=== PATIENT | male | born 1945 ===

== ENCOUNTER → 2022-10-04 | Outpatient (CLI) | payer MEDICARE ==
[~2022-10-04] MED LIST: OXYACE5T PO
[2022-10-04 14:38] LABS: BASOPHILS ABSOLUTE AUTO 0.13 K/mm3 (0.00-0.23); BASOPHILS PERCENT AUTO 2 % (0-2); EOSINOPHILS ABSOLUTE AUTO 0.61 K/mm3 (0.00-0.68); EOSINOPHILS PERCENT AUTO 7 % (0-6); Hematocrit 39.2 % (37.0-53.0); Hemoglobin 12.7 g/dL (13.5-17.5); IMMATURE GRAN ABSOLUTE AUTO 0.05 K/mm3 (0.00-0.10); IMMATURE GRAN PERCENT AUTO 1 % (0-1); LYMPHOCYTES ABSOLUTE AUTO 2.54 K/mm3 (0.84-5.20); LYMPHOCYTES PERCENT AUTO 29 % (21-46); MONOCYTES ABSOLUTE AUTO 0.81 K/mm3 (0.16-1.47); MONOCYTES PERCENT AUTO 9 % (4-13); Mean Corpuscular HGB Conc 32.4 g/dL (31.5-36.5); Mean Corpuscular Volume 102 fL (80-100); Mean Platelet Volume 10.4 fL (9.1-12.4); NEUTROPHILS ABSOLUTE AUTO 4.77 K/mm3 (1.96-9.15); NEUTROPHILS PERCENT AUTO 54 % (41-73); Platelet Count 333 K/mm3 (150-400); RDW Coefficient Variation 16.4 % (11.7-14.2); RDW Standard Deviation 62.1 fL (35.1-46.3); Red Blood Cell Count 3.85 M/mm3 (4.30-5.90); White Blood Cell Count 8.91 K/mm3 (4.00-11.30)
[2022-10-04 14:46] LABS: Very Low Density Lipoprot Chol 17 mg/dL (6-32)
[2022-10-04 15:10] LABS: Alanine Aminotransfer (ALT/SGP 35 U/L (12-78); Albumin, Blood 3.7 g/dL (3.4-5.0); Albumin/Globulin Ratio 0.9 (0.8-1.8); Alk Phos 148 U/L (50-136); Anion Gap 6 mmol/L (6-16); Aspartate Aminotrans (AST/SGOT 23 U/L (12-37); Bilirubin, Total 0.3 mg/dL (0.1-1.0); Blood Urea Nitrogen 27 mg/dL (8-24); CHOL/HDL RATIO 2.1; CO2, Blood 24 mmol/L (21-32); Calcium, Blood 9.5 mg/dL (8.5-10.1); Chloride, Blood 111 mmol/L (98-108); Cholesterol 145 mg/dL (50-200); Creatinine, Blood 1.23 mg/dL (0.60-1.20); Glomerular Filtration Rate 60 (60-); Glucose, Blood 89 mg/dL (70-99); HDL Cholesterol 69 mg/dL (>39); LDL/HDL RATIO 0.9; Low Density Lipoprotein Chol 59 mg/dL (0-110); Potassium, Blood 3.9 mmol/L (3.5-5.5); Sodium, Blood 141 mmol/L (136-145); Total Protein, Blood 7.7 g/dL (6.4-8.2); Triglycerides 85 mg/dL (30-160)
== END ==
LOC: LAB SHORT 11:57 → LAB 11:57
PROVIDERS: Physician Assistant
DX: Z11.59 Encounter for screening for other viral diseases (principal); E03.9 Hypothyroidism, unspecified; E55.9 Vitamin D deficiency, unspecified; I10 Essential (primary) hypertension; R41.3 Other amnesia
CPT/HCPCS: 80053; 80061; 82306; 82607; 82746; 84443; 85025; 85651; 86592; 86803

== ENCOUNTER 2024-02-11 18:30 | Inpatient (IN) | payer MEDICARE, OTHER ==
[~2024-02-11] VITALS: Ht 172.7 cm; Wt 56.7 kg
[2024-02-11 19:57] LABS: BASOPHILS ABSOLUTE AUTO 0.11 K/mm3 (0.00-0.23); BASOPHILS PERCENT AUTO 1 % (0-2); EOSINOPHILS ABSOLUTE AUTO 0.47 K/mm3 (0.00-0.68); EOSINOPHILS PERCENT AUTO 4 % (0-6); Hematocrit 37.1 % (37.0-53.0); Hemoglobin 12.1 g/dL (13.5-17.5); IMMATURE GRAN ABSOLUTE AUTO 0.05 K/mm3 (0.00-0.10); IMMATURE GRAN PERCENT AUTO 1 % (0-1); LYMPHOCYTES ABSOLUTE AUTO 2.44 K/mm3 (0.84-5.20); LYMPHOCYTES PERCENT AUTO 22 % (21-46); MONOCYTES ABSOLUTE AUTO 1.42 K/mm3 (0.16-1.47); MONOCYTES PERCENT AUTO 13 % (4-13); Mean Corpuscular HGB 33.3 pg (26.0-34.0); Mean Corpuscular HGB Conc 32.6 g/dL (31.5-36.5); Mean Corpuscular Volume 102 fL (80-100); Mean Platelet Volume 9.7 fL (9.1-12.4); NEUTROPHILS ABSOLUTE AUTO 6.47 K/mm3 (1.96-9.15); NEUTROPHILS PERCENT AUTO 59 % (41-73); Platelet Count 265 K/mm3 (150-400); RDW Coefficient Variation 16.2 % (11.7-14.2); RDW Standard Deviation 61.2 fL (35.1-46.3); Red Blood Cell Count 3.63 M/mm3 (4.30-5.90); White Blood Cell Count 10.96 K/mm3 (4.00-11.30)
[2024-02-11] MEDS ORDERED: MethylPREDNISolone Sod Succ 125 MG Vial IV ONE (20:00)
[2024-02-11] MEDS ORDERED: Ipratropium/Albuterol SulF 2.5-0.5MG/3 ML Amp INH ONE ×2 (20:00)
[2024-02-11 20:53] LABS: Albumin, Blood 3.4 g/dL (3.4-5.0); Albumin/Globulin Ratio 0.8 (0.8-1.8); Bilirubin, Total 0.4 mg/dL (0.1-1.0); Bun/Creatinine Ratio 23.3 (12.0-20.0); Calcium, Blood 9.7 mg/dL (8.5-10.1); Creatinine, Blood 1.2 mg/dL (0.60-1.20); Globulin, Blood 4.3 g/dL (2.2-4.0); Potassium, Blood 4.4 mmol/L (3.5-5.5); Total Protein, Blood 7.7 g/dL (6.4-8.2)
[2024-02-11 21:12] LABS: Influenza B, PCR NEGATIVE (NEGATIVE); Resp Syncytial Virus, PCR NEGATIVE (NEGATIVE); SARS-Cov-2 (COVID-19) PCR, MMC NEGATIVE (NEGATIVE)
[2024-02-11 22:14] LABS: Influenza A, PCR POSITIVE (NEGATIVE)
[2024-02-11] MEDS ORDERED: Acetaminophen 325 MG TABLET PO PRN (22:30)
[2024-02-11] MEDS ORDERED: Benzonatate 100 MG Cap PO PRN (22:30)
[2024-02-11] MEDS ORDERED: FLU VACC TS2024-25(6MOS UP)/PF 45 MCG/0.5 ML SYRINGE IM ONE (22:35)
[2024-02-11] MEDS ORDERED: Ipratropium/Albuterol SulF 2.5-0.5MG/3 ML Amp INH SCH (22:35)
[2024-02-11] MEDS ORDERED: Albuterol 2.5 MG/3 ML VIAL INH PRN (22:35)
[2024-02-11] MEDS ORDERED: Lactated Ringer's 1,000 ML IV SCH (23:00)
[2024-02-11] MEDS ORDERED: ALBU3IS INH (23:08)
[2024-02-11] MEDS ORDERED: METOPROLOL TART25 MG PO (23:08)
[2024-02-11] MEDS ORDERED: SYNTHROID88 MCG PO (23:09)
[2024-02-11] MEDS ORDERED: ALLOPURINOL100 M1 PO (23:09)
[2024-02-11] MEDS ORDERED: MIRTAZAPINE7.5 M1 PO (23:10)
[2024-02-11] MEDS ORDERED: AMLODIPINE BES2.5 MG PO (23:10)
[2024-02-11] MEDS ORDERED: ATOR40TA PO (23:10)
[2024-02-11] MEDS ORDERED: BRILINTA90 M7 PO (23:11)
--- NOTE | 2024-02-12 00:10 | NUR ---
PT ARRIVED FROM ER TO 324 VIA GURNEY. APPEARS TO BE ALERT AND ORIENTED. BROUGHT UP ON 6L VIA NC. PT TRANSFERRED TO BED VIA SLIDER SHEET. PT VERY VOCAL WITH TURNING AND WITH REMOVING EXCESS LINEN. STARTLES VERY EASILY. REASSURED PT THAT HE WOULD BE MORE COMFORTABLE ONCE WE GOT HIM SETTLED. PER ER NURSE, PT KEPT REMOVING HIS NC, REPLACED NC WITH OXIMASK ON 6L. PT SATS AT 93-94%. BOOSTED PT UP IN BED AND SUPPORTED HEAD WITH TWO PILLOWS WITH HOB ELEVATED. PT NODDED HEAD THAT HE WAS COMFORTABLE WHEN ASKED. HARD TO UNDERSTAND AT TIMES, PT MUMBLES. BED ALARM ON FOR PT SAFETY. CALL LT IN REACH. WILL CONTINUE TO PROVIDE CARE T/O SHIFT.
[2024-02-12 00:25] VITALS: BP 130/69
[2024-02-12] MEDS ORDERED: Oseltamivir Phosphate 75 MG Cap PO SCH (00:43)
--- NOTE | 2024-02-12 01:43 | NUR ---
PT HAS PULLED OXIMASK FROM OFF FACE AND DESATS TO 88-89%. REMINDED PT TO LEAVE MASK ON FACE. STILL ON 6L VIA OXIMASK, SATS 96%, HR 88. CONTINUES TO HAVE LABORED BREATHING AND USING ACCESSORY MUSCLES.
--- NOTE | 2024-02-12 02:44 | NUR ---
AFTER RECEIVING BREATHING TREATMENT PT SATS 98% ON 6L.
--- NOTE | 2024-02-12 04:00 | NUR ---
PT RESTING COMFORTABLY. O2 SATS 97% ON 6L VIA OXIMASK. CALL LT IN REACH.
--- NOTE | 2024-02-12 05:27 | NUR ---
SHIFT SUMMARY: ER ADMIT AT 0010. PT A/O X 4. DOES HAVE DIFFICULTY IN EXPRESSING HIS NEEDS, MUMBLES AND GRUNTS WHEN HE TALKS. HYPERSENSITIVE TO TOUCH AND SOUND, STARTLES EASILY. TITRATED O2 FROM 6L TO 4L AT END OF SHIFT,SATS 98% AT REST.HR IN 70'S. NPC. RESPONDING TO BREATHING TREATMENTS, OXYGEN SATS IMPROVING. FIRST DOSE OF TAMIFLU GIVEN THIS SHIFT. LR INFUSING AT 125 MLS/HR. WILL CONTINUE TO PROVIDE CARE UNTIL SHIFT REPORT TO ONCOMING NURSE.
[2024-02-12 05:52] LABS: BASOPHILS ABSOLUTE AUTO 0.06 K/mm3 (0.00-0.23); BASOPHILS PERCENT AUTO 1 % (0-2); EOSINOPHILS PERCENT AUTO 0 % (0-6); Hematocrit 31.1 % (37.0-53.0); Hemoglobin 10.2 g/dL (13.5-17.5); IMMATURE GRAN ABSOLUTE AUTO 0.06 K/mm3 (0.00-0.10); IMMATURE GRAN PERCENT AUTO 1 % (0-1); LYMPHOCYTES ABSOLUTE AUTO 0.74 K/mm3 (0.84-5.20); LYMPHOCYTES PERCENT AUTO 6 % (21-46); MONOCYTES ABSOLUTE AUTO 0.39 K/mm3 (0.16-1.47); MONOCYTES PERCENT AUTO 3 % (4-13); Mean Corpuscular HGB 33.6 pg (26.0-34.0); Mean Corpuscular HGB Conc 32.8 g/dL (31.5-36.5); Mean Corpuscular Volume 102 fL (80-100); Mean Platelet Volume 10.1 fL (9.1-12.4); NEUTROPHILS ABSOLUTE AUTO 10.24 K/mm3 (1.96-9.15); NEUTROPHILS PERCENT AUTO 89 % (41-73); Platelet Count 261 K/mm3 (150-400); RDW Coefficient Variation 16.2 % (11.7-14.2); Red Blood Cell Count 3.04 M/mm3 (4.30-5.90); White Blood Cell Count 11.49 K/mm3 (4.00-11.30)
--- NOTE | 2024-02-12 05:53 | NUR ---
TITRATED O2 DOWN FROM 4L TO 3L, SATS AT 96%.
[2024-02-12 06:08] LABS: Albumin, Blood 2.8 g/dL (3.4-5.0); Albumin/Globulin Ratio 0.8 (0.8-1.8); Bilirubin, Total 0.3 mg/dL (0.1-1.0); Bun/Creatinine Ratio 23.8 (12.0-20.0); Creatinine, Blood 1.22 mg/dL (0.60-1.20); Globulin, Blood 3.6 g/dL (2.2-4.0); Potassium, Blood 3.6 mmol/L (3.5-5.5); Total Protein, Blood 6.4 g/dL (6.4-8.2)
[2024-02-12 08:11] VITALS: BP 133/75
[2024-02-12] MEDS ORDERED: MethylPREDNISolone Sod Succ 125 MG Vial IV SCH (09:00)
[2024-02-12] MEDS ORDERED: Enoxaparin 40 MG/0.4 ML SYR SC SCH (09:00)
[2024-02-12] MEDS ORDERED: GuaiFENesin 600 MG TabCR PO SCH (09:00)
[2024-02-12 14:58] VITALS: BP 113/58
[2024-02-12] MEDS ORDERED: Metoprolol Tartrate 25 MG Tab PO SCH (16:00)
--- NOTE | 2024-02-12 18:10 | NUR ---
PT AOX3 WITH SOME CONFUSION. PT HAS BEEN VERY TIRED AND RESTING NEEDS REPOSTIONED Q2 HRS. PT IS COOPERATIVE OF CARE ON 5L NC CURRENTLY. CALL LIGHT WITHIN REACH WILL CONTINUE TO MONITOR.
[2024-02-12] MEDS ORDERED: Oseltamvir Phosphate 30 MG Cap PO SCH (21:00)
[2024-02-12] MEDS ORDERED: Ticagrelor 90 MG TABLET PO SCH (21:00)
[2024-02-12] MEDS ORDERED: Mirtazapine 15 MG Tab PO SCH (21:00)
[2024-02-12 21:16] VITALS: BP 122/67
[2024-02-13 04:43] VITALS: BP 120/52
--- NOTE | 2024-02-13 05:12 | NUR ---
A&OX2-3, W/NOTABLE CONFUSION WHEN WAKING HIM, VSS, TELE NS 80'S, NIGHT O2 RANGING FROM 5-7L VIA MASK, DENIED PAIN, APPEARS TO BE SLEEPING AT THIS TIME, CALL LIGHT IN REACH, BED ALARM ACTIVE, WILL CONT TO MONITOR UNTIL REPORT GIVEN TO ONCOMING NURSE.
[2024-02-13 05:50] LABS: BASOPHILS ABSOLUTE AUTO 0.02 K/mm3 (0.00-0.23); BASOPHILS PERCENT AUTO 0 % (0-2); EOSINOPHILS PERCENT AUTO 0 % (0-6); Hematocrit 30.5 % (37.0-53.0); IMMATURE GRAN ABSOLUTE AUTO 0.14 K/mm3 (0.00-0.10); IMMATURE GRAN PERCENT AUTO 1 % (0-1); LYMPHOCYTES ABSOLUTE AUTO 1.35 K/mm3 (0.84-5.20); LYMPHOCYTES PERCENT AUTO 7 % (21-46); MONOCYTES ABSOLUTE AUTO 1.47 K/mm3 (0.16-1.47); MONOCYTES PERCENT AUTO 8 % (4-13); Mean Corpuscular HGB 33.2 pg (26.0-34.0); Mean Corpuscular HGB Conc 32.8 g/dL (31.5-36.5); Mean Corpuscular Volume 101 fL (80-100); NEUTROPHILS PERCENT AUTO 85 % (41-73); Platelet Count 258 K/mm3 (150-400); RDW Coefficient Variation 16.3 % (11.7-14.2); RDW Standard Deviation 60.9 fL (35.1-46.3); Red Blood Cell Count 3.01 M/mm3 (4.30-5.90); White Blood Cell Count 19.28 K/mm3 (4.00-11.30)
[2024-02-13] MEDS ORDERED: Levothyroxine Sodium 0.088 MG Tab PO SCH (06:00)
[2024-02-13 06:24] LABS: Bun/Creatinine Ratio 30.1 (12.0-20.0); Calcium, Blood 9.5 mg/dL (8.5-10.1); Creatinine, Blood 1.23 mg/dL (0.60-1.20); Potassium, Blood 3.9 mmol/L (3.5-5.5)
--- NOTE | 2024-02-13 06:47 | NUR ---
CALL DR TOVAR- PT HAD 2.08SEC PAUSE ON TELE THEN 3 BEATS NETTA IN 40S BEFORE RETURNING TO NS 70S, THEN IMMED HAD A 4 BEAT NETTA DOWN TO 34. NO NEW ORDERS, CONTINUE TO MONITOR.
[2024-02-13 07:52] VITALS: BP 103/57
[2024-02-13] MEDS ORDERED: Allopurinol 100 MG Tab PO SCH (09:00)
[2024-02-13] MEDS ORDERED: Atorvastatin 40 MG Tab PO SCH (09:00)
[2024-02-13] MEDS ORDERED: AmLODIPine Besylate 5 MG Tab PO SCH (09:00)
--- NOTE | 2024-02-13 14:52 | NUR ---
EARLY THIS MORNING PATIENT WAS BRADYING DOWN TO 40'S. AND OCCASIONALLY TOUCHING 38-39 DR. NOYOLA WAS NOTIFIED AND ORDERED PRN EKG WHEN NETTA. PATIENT HAS BEEN ON CONT PULSE OX AND HAS NOT BEEN NETTA SINCE. CONCRETE BLOCK MOLDER HAS ALSO NOT CALLED ME BACK TO REPORT NETTA EPISODES.
--- NOTE | 2024-02-13 15:35 | NUR ---
EKG COMPLETED, PLACED ON PAPER CHART
--- NOTE | 2024-02-13 15:58 | NUR ---
SHIFT SUMMARY PATIENT ROOM AIR AT BASELINE. CAME ON TO SHIFT AND PATIENT WAS ON 7L OXIMASK, HAVE WEANED PATIENT DOWN TO 4L OXIMASK AND SWITCH OVER TO NASAL CANNULA WITH MEALS. PATIENT PRIMARILY BREATHING THROUGH MOUTH, WILL OCCASIONALLY REMOVE MASK AND NEED REMINDING TO KEEP ON. PRODUCT MARKETER CALLED IN THE MORNING WITH REPORTS OF PATIENT BEING NETTA IN THE 40'S FREQUENTLY, AND OCCASIONALLY TOUGHING 38/39. DR. NOYOLA NOTIFIED AND ORDERED PRN EKG WHEN NETTA. EKG COMPLETED. DR. NOYOLA ALSO ORDERED CARDIOLOGY CONSULT, CONSULT CALLED IN TO DR. JACKSON. PATIENT USING URINAL IN BED, WILL NEED HELD OCCASIONALLY, FINE MOTOR SKILLS OF HANDS ARE LIMITED. THICK SILVERWARE HANDLES AT BEDSIDE. DOES NOT CALL APPROPRIATELY. JUST YELLS OUT. BED ALARM ON. PATIENT RECEIVING NEB TREATMENTS BY RT.
[2024-02-13 16:10] VITALS: BP 124/65
[2024-02-13 20:20] VITALS: BP 125/73
[2024-02-13] MEDS ORDERED: GuaiFENesin 600 MG TabCR PO SCH (21:00)
[2024-02-14 02:48] VITALS: BP 130/67
--- NOTE | 2024-02-14 02:56 | NUR ---
RAMP FLIGHT ATTENDANT NOTIFIED THIS RN OF ALERT TO ST ELEVATION AND DEPRESSION; TECH ADVISED PT HAD PREVIOUS SIMILAR ALERTS. ASSESSED PT; NO C/O OF CHEST PAIN OR CHANGE IN CONDITION. SUBSEQUENT CALL FROM TELE 15 MINUTES LATER TO ADVISE OF 2.09 SECOND PAUSE. CALL TO ON HOSPITALIST; NEW ORDER FOR EKG AND RECHECK VITALS. HR 85, AND BP 130/67. EKG COMPLETE. SINUS ARRHYTHMIA, R BBB. CANNOT RULE OUT INFFERIOR INFARCT, AGE UNDETERMINED. PT REMAINS ASYMPTOMATIC. HOPITALIST TO REVIEW EKG AND NOTIFY OF NEW ORDERS. CALL FROM [employer] AT [phone]; REPORTING ST ELEVATION HAS RESOLVED.
[2024-02-14 05:10] LABS: BASOPHILS ABSOLUTE AUTO 0.02 K/mm3 (0.00-0.23); BASOPHILS PERCENT AUTO 0 % (0-2); EOSINOPHILS PERCENT AUTO 0 % (0-6); Hematocrit 30.3 % (37.0-53.0); IMMATURE GRAN ABSOLUTE AUTO 0.11 K/mm3 (0.00-0.10); IMMATURE GRAN PERCENT AUTO 1 % (0-1); LYMPHOCYTES ABSOLUTE AUTO 1.34 K/mm3 (0.84-5.20); LYMPHOCYTES PERCENT AUTO 8 % (21-46); MONOCYTES ABSOLUTE AUTO 1.61 K/mm3 (0.16-1.47); MONOCYTES PERCENT AUTO 9 % (4-13); Mean Corpuscular HGB 33.4 pg (26.0-34.0); Mean Corpuscular Volume 101 fL (80-100); Mean Platelet Volume 9.6 fL (9.1-12.4); NEUTROPHILS ABSOLUTE AUTO 14.09 K/mm3 (1.96-9.15); NEUTROPHILS PERCENT AUTO 82 % (41-73); NRBC ABSOLUTE 0.04 K/mm3 (0.00-0.02); NRBC Auto 0.2 /100 WBC (0.0-0.2); Platelet Count 250 K/mm3 (150-400); RDW Coefficient Variation 16.5 % (11.7-14.2); RDW Standard Deviation 61.6 fL (35.1-46.3); Red Blood Cell Count 2.99 M/mm3 (4.30-5.90); White Blood Cell Count 17.17 K/mm3 (4.00-11.30)
--- NOTE | 2024-02-14 05:45 | NUR ---
AT 0415--FLOTATION TANK OPERATOR NOTIFIED THIS RN PT HAD 2.38 SECOND PAUSE. ASSESSED PT; ASYMTPOMATIC. WCTM.
--- NOTE | 2024-02-14 05:47 | NUR ---
THIS RN RESPONDED TO PT ROOM AT APROX 0530--PT WAS SCREAMING OBSCENITIES; "YOU SON OF A BITCH, GOD DAMN IT, GET THE FUCK OUT OF HERE" PT REPEATING SAME PHRASES OVER AND OVER. FOUND PT TO BE SITTING UP IN BED. OXYGEN MASK WAS OFF AND PT WAS TACHYPNEIC BUT OXYGEN SAT WAS 92%. WHEN I APPROACHED THE PT'S BEDSIDE HE CONTINUED SCREAMING. WHEN ATTEMPTING TO ADDRESS THE PT HE SAID "NOT YOU, HER" AND POINTED AT THE WINDOW. THE PT SAID HE WAS REFERING TO HIS MOTHER WHO HE COULD SEE ACCROSS THE ROOM. THE PT WAS HAVING AUDIO AND VISUAL HALLUCINATIONS. AT THAT TIME DINKEY BRAKEMAN CALLED TO REPORT HR WAS UP IN DANTE 150'S. STAYED WITH PT TO CALM. ASSISTED TO PLACE MASK BACK ON FACE AND RETURN PT TO COMFORTABLE POSITION. ASSURED PT OF HIS SAFETY AND INSTRUCTED ON TAKING DEEP BREATHS THROUGH NOSE. ASSISED WITH BATHROOM NEEDS. PT HR HAS RETURNED TO 90'S AND HE WAS CALM. PT REMAINS ON CONT PULSE OX. WCTM.
[2024-02-14 05:57] LABS: Bun/Creatinine Ratio 33.9 (12.0-20.0); Calcium, Blood 9.7 mg/dL (8.5-10.1); Creatinine, Blood 1.15 mg/dL (0.60-1.20); Potassium, Blood 3.9 mmol/L (3.5-5.5)
[2024-02-14 07:57] VITALS: BP 158/73
[2024-02-14] MEDS ORDERED: PredniSONE 20 MG Tab PO SCH (09:00)
--- NOTE | 2024-02-14 09:47 | NUR ---
MD NOTIFIED OF HEART RATE IN 30s THIS AM. TELEMETRY CALLED TO NOTIFY OF BRADYCARDIA. MD STATED OKAY TO ADMINISTER SCHEDULED AMLODIPINE. WILL CONTINUE TO MONITOR.
--- NOTE | 2024-02-14 13:53 | NUR ---
NOTIFIED OF HEART RATE IN 140s SUSTAINED FOR 8 MINUTES PER TEST KITCHEN HOME ECONOMIST. VITAL SIGNS OBTAINED, HEART RATE RETURNED TO 50s. PATIENT ASYMPTOMATIC. WILL CONTINUE TO MONITOR.
[2024-02-14 13:55] VITALS: BP 122/58
[2024-02-14 15:51] VITALS: BP 143/54
--- NOTE | 2024-02-14 18:49 | NUR ---
SHIFT SUMMARY PATIENT A/OX SELF. CALLS APPROPRIATELY. PATIENT INTERMITTENTLY IRRITABLE AND FAMILY REPORTS HE IS "JUMPY" AND TO VERBALIZE PRESENCE PRIOR TO ENTERING ROOM. PATIENT WEANED OFF OF SUPPLEMENTAL OXYGEN TODAY, TOLERATING WELL. CONTINUOUS PULSE OX IN PLACE SPO2 REMAINS ABOVE 88% ON ROOM AIR. TELEMETRY IN PLACE, PATIENT BRADYCARDIC IN 30s THIS AM AND THIS AFTERNOON TACHYCARDIC IN 140s, MD AWARE. PATIENT REMAINS ASYMPTOMATIC. REPEATS CHEST X RAY OBTAINED THIS AFTERNOON, REMIANS NEGATIVE. PATIENT CONTINUES WITH PRODUCTIVE COUGH. NO OTHER CONCERNS AT THIS TIME.
[2024-02-14 19:53] VITALS: BP 139/75
--- NOTE | 2024-02-15 02:10 | NUR ---
PER TELEMETRY PT WITH ST IN THE 130'S FOLLOWED SHORTLY AFTER WITH A 2 SECOND PAUSE. PT ASYMPTOMATIC. DR. TOVAR NOTIFIED. NO NEW ORDERS AT THIS TIME.
[2024-02-15 02:18] VITALS: BP 170/88
--- NOTE | 2024-02-15 04:08 | NUR ---
DR. TOVAR NOTIFIED OF ADDITIONAL SINUS TACH EPISODES IN 130-140'S, SLOW BEATS IN THE 30'S, AND 2.16 SECOND PAUSE. PT ASYMPTOMATIC. NO NEW ORDERS.
--- NOTE | 2024-02-15 05:43 | NUR ---
SHIFT SUMMARY PT CONTINUES TO HAVE FLUCTUATING HEART RATE. PER TELEMETRY, HEART RATE UP TO 130-140'S, HEART RATE DOWN TO THE 30-40'S, AND PAUSES OF APPROX 2 SECONDS. PLANNER/SCHEDULER MD CALLED X2 ABOUT HEART RATE ISSUES- NO NEW ORDERS. PT MAINTAINED O2 SATS >90% ON RA UNTIL 0200 WHEN SATS DROPPED TO 86-88%, FROM THEN 2L OXY MASK IN PLACE WITH SAT >90%. PT ORIENTED X4 WITH SOME FORGETFULNESS AND CONFUSION. PT SLEPT LONG INTERVALS THROUGH THE NIGHT. BED IN LOWEST POSITION, CALL LIGHT WITHIN REACH, SIDE RAILS UP X2.
[2024-02-15] MEDS ORDERED: Omeprazole 20 MG CapCR PO SCH (06:00)
[2024-02-15 06:30] LABS: BASOPHILS ABSOLUTE AUTO 0.02 K/mm3 (0.00-0.23); BASOPHILS PERCENT AUTO 0 % (0-2); EOSINOPHILS PERCENT AUTO 0 % (0-6); Hemoglobin 10.9 g/dL (13.5-17.5); IMMATURE GRAN ABSOLUTE AUTO 0.12 K/mm3 (0.00-0.10); IMMATURE GRAN PERCENT AUTO 1 % (0-1); LYMPHOCYTES ABSOLUTE AUTO 2.09 K/mm3 (0.84-5.20); LYMPHOCYTES PERCENT AUTO 16 % (21-46); MONOCYTES ABSOLUTE AUTO 1.59 K/mm3 (0.16-1.47); MONOCYTES PERCENT AUTO 13 % (4-13); Mean Corpuscular HGB 33.4 pg (26.0-34.0); Mean Corpuscular Volume 101 fL (80-100); Mean Platelet Volume 9.9 fL (9.1-12.4); NEUTROPHILS ABSOLUTE AUTO 8.91 K/mm3 (1.96-9.15); NEUTROPHILS PERCENT AUTO 70 % (41-73); NRBC ABSOLUTE 0.02 K/mm3 (0.00-0.02); NRBC Auto 0.2 /100 WBC (0.0-0.2); Platelet Count 281 K/mm3 (150-400); RDW Coefficient Variation 16.1 % (11.7-14.2); RDW Standard Deviation 60.6 fL (35.1-46.3); Red Blood Cell Count 3.26 M/mm3 (4.30-5.90); White Blood Cell Count 12.73 K/mm3 (4.00-11.30)
[2024-02-15 06:36] LABS: Bun/Creatinine Ratio 33.8 (12.0-20.0); Calcium, Blood 10.1 mg/dL (8.5-10.1); Creatinine, Blood 0.98 mg/dL (0.60-1.20); Potassium, Blood 3.9 mmol/L (3.5-5.5)
[2024-02-15 07:36] VITALS: BP 171/79
[2024-02-15] MEDS ORDERED: Aspirin 81 MG Chew PO SCH (09:00)
[2024-02-15 14:49] VITALS: BP 134/75
--- NOTE | 2024-02-15 17:34 | NUR ---
SHIFT SUMMARY: PATIENT A/O TO SELF, PLACED AND FAMILY AT BEDSIDE, CONFUSED AT TIMES, BUT EASILY REDIRECTABLE. PATIENT DENIES CP/PRESSURE, SOB, N/V AND DIZZINESS. PATIENT ON TELE, HAD EPISODE OF BEING TACHY HR IN THE LOW 120-140'S BUT DID NOT SUSTAINED AND BACK TO HIGH 40'S-90'S RANGE. AT AROUND 1400 PATIENT HR STAYED IN THE HIGH 40'S TO HIGH 50'S RANGE, BRADYCARDIA. PATIENT SLEPT MAJORITY OF THIS SHIFT. PATIENT ON 2L O2 VIA NC, SATTING 91-94%, LUNGS COARSE AND WHEEZY T/O TO AUSCULTATION. PATIENT IS EXTREMELY WEAK, PT/OT ORDERED. PATIENT HAS GOOD APPETITE, CONT/INCONT OF BLADDER, ATTENDS PLACED AND USES URINAL c CLIENT SERVICE ADMINISTRATOR. PATIENT HAD BEDBATH AND LINEN CHANGED TODAY. PATIENT RECEIVED SCHEDULED MEDS PER EMAR. VITAL SIGNS REVIEWED. BED ALARM ON FOR SAFETY. CALL LT IN REACH.
[2024-02-15 20:13] VITALS: BP 150/69
[2024-02-15] MEDS ORDERED: AmLODIPine Besylate 5 MG Tab PO SCH (21:00)
[2024-02-16 02:42] VITALS: BP 154/83
--- NOTE | 2024-02-16 05:03 | NUR ---
SHIFT SUMMARY PT SLEPT LONG INTERVALS THROUGH THE NIGHT. 2L NC MAINTAINED- CONTINUOUS PULSE OX WITH O2 SATS > 90%. PT CONTINOUS TO HAVE NON PRODUCTIVE COUGH AND SOB WITH ACTIVITY. TELE MONITOR CALLED X2 FOR SINUS TACH/ SVT. PT DID NOT HAVE ANY EPISODES OF SLOW BEATS OR PAUSES. HEART RATE SB40'S- SR90S. PT ORIENTED, BUT HAS PERIODS OF CONFUSION. BED ALARM ON, BED IN LOWEST POSITION, SIDE RAILS UP X3, CALL LIGHT WITHIN REACH.
[2024-02-16 05:14] LABS: BASOPHILS ABSOLUTE AUTO 0.02 K/mm3 (0.00-0.23); BASOPHILS PERCENT AUTO 0 % (0-2); EOSINOPHILS PERCENT AUTO 0 % (0-6); Hematocrit 32.7 % (37.0-53.0); Hemoglobin 10.8 g/dL (13.5-17.5); IMMATURE GRAN ABSOLUTE AUTO 0.06 K/mm3 (0.00-0.10); IMMATURE GRAN PERCENT AUTO 1 % (0-1); LYMPHOCYTES ABSOLUTE AUTO 2.26 K/mm3 (0.84-5.20); LYMPHOCYTES PERCENT AUTO 21 % (21-46); MONOCYTES ABSOLUTE AUTO 1.45 K/mm3 (0.16-1.47); MONOCYTES PERCENT AUTO 13 % (4-13); Mean Corpuscular HGB 32.9 pg (26.0-34.0); Mean Corpuscular Volume 100 fL (80-100); Mean Platelet Volume 9.9 fL (9.1-12.4); NEUTROPHILS ABSOLUTE AUTO 7.03 K/mm3 (1.96-9.15); NEUTROPHILS PERCENT AUTO 65 % (41-73); Platelet Count 286 K/mm3 (150-400); RDW Standard Deviation 58.7 fL (35.1-46.3); Red Blood Cell Count 3.28 M/mm3 (4.30-5.90); White Blood Cell Count 10.82 K/mm3 (4.00-11.30)
[2024-02-16 05:36] LABS: Bun/Creatinine Ratio 36.8 (12.0-20.0); Calcium, Blood 10.3 mg/dL (8.5-10.1); Creatinine, Blood 0.98 mg/dL (0.60-1.20)
[2024-02-16 08:11] VITALS: BP 145/71
[2024-02-16] MEDS ORDERED: NS 1,000 ML IV SCH (10:00)
[2024-02-16 14:54] VITALS: BP 138/68
--- NOTE | 2024-02-16 18:12 | NUR ---
PT AOX3 WITH CONFUSION. PT WILL CALL OUT AT TIMES,BUT CAN MAKE NEEDS KNOWN. PT WORKED WITH PT AND WAS GOTTEN UP IN CHAIR. WHEN UP IN CHAIR HR INCREASED TO 150s PT SAT UP FOR A BIT HR WOULD NOT GO DOWN AND PT WAS PUT BACK TO BED. HR WENT DOWN IMMEDIATELY. DR KU WAS NOTFIED AND FLUIDS WERE ORDERED. PT RESTING IN BED THE REST OF THE DAY. CALL LIGHT LAKHWINDER KATZ WILL CONTINUE TO MONITOR.
[2024-02-16 20:02] VITALS: BP 139/96
[2024-02-17 02:22] VITALS: BP 146/70
--- NOTE | 2024-02-17 04:32 | NUR ---
PARASITOLOGIST SUMMARY: PT A&O X3 WITH INTERMITTENT CONFUSION. PT SLEPT LONG INTERVALS THROUGH NIGHT. 2L NC MAINTAINED- CONTINUOUS PULS OX WITH O2 SATS > 90%. PT CONTINOUS TO HAVE NON PRODUCTIVE COUGH. HEART RATE SB40'S. PT NOTED TO HAVE INTERMITTENT AGITATION T/O SHIFT, TOILETING NEEDS MET AND FOOD OFFERED WITH GOOD EFFECT. DEIES PAIN, NO S/SX OF PAIN. BED ALARM ON, BED IN LOWEST POSITION.
[2024-02-17 08:01] VITALS: BP 157/88
[2024-02-17 09:06] VITALS: BP 162/83
[2024-02-17 09:09] VITALS: BP 134/86
[2024-02-17 15:32] VITALS: BP 137/77
--- NOTE | 2024-02-17 17:06 | NUR ---
SHIFT SUMMARY PT CONT LEVEL OF CARE. PT NOTED TO BE A&OX4 AND ASSIST X1. PT HAS BEEN ENCOURAGED TO GET UP WITH MEALS AND AMBULATE AROUND ROOM PER PHYSICIAN. PT IS STILL REQUIRING 2L/NC. PT NOTED TO BE SINUS NETTA WHILE RESTING AND SINUS RYTHM WHILE AWAKE THIS SHIFT. ORTHOSTATIC VS TAKEN THIS SHIFT WHICH NOTED ORTHOSTATIC HYPOTENTION. PHYSICAN MADE AWARE WITH NO NEW ORDERS AT THIS TIME. THERAPY NOTED TO WORK WITH PT FOR A SHORT TIME THIS SHIFT. POSSIBLE DC TOMORROW.
[2024-02-17 19:23] VITALS: BP 133/65
[2024-02-18 03:40] VITALS: BP 159/72
--- NOTE | 2024-02-18 04:20 | NUR ---
SHIFT SUMMARY PATIENT HAD NO ACUTE CHANGES. AXOX 3-4 WITH CONFUSION AT TIMES. ONE ASSIST W/FWW TO BSC. USES URINAL AT BEDSIDE. UP IN CHAIR AT START OF SHIFT. IRRITABLE AT TIMES. PIV INTACT. TELE MONITOR NSR 87. ON 2L O2 NC AND 3L BASELINE. CALL LIGHT IN REACH. BED IN LOWEST POSITION. WILL CONTINUE TO MONITOR UNTIL DAY SHIFT NURSE ASSUMES CARE.
[2024-02-18 05:20] LABS: BASOPHILS ABSOLUTE AUTO 0.02 K/mm3 (0.00-0.23); BASOPHILS PERCENT AUTO 0 % (0-2); EOSINOPHILS PERCENT AUTO 0 % (0-6); Hematocrit 32.7 % (37.0-53.0); Hemoglobin 10.9 g/dL (13.5-17.5); IMMATURE GRAN ABSOLUTE AUTO 0.16 K/mm3 (0.00-0.10); IMMATURE GRAN PERCENT AUTO 1 % (0-1); LYMPHOCYTES ABSOLUTE AUTO 2.52 K/mm3 (0.84-5.20); LYMPHOCYTES PERCENT AUTO 19 % (21-46); MONOCYTES PERCENT AUTO 10 % (4-13); Mean Corpuscular HGB 33.4 pg (26.0-34.0); Mean Corpuscular HGB Conc 33.3 g/dL (31.5-36.5); Mean Corpuscular Volume 100 fL (80-100); Mean Platelet Volume 10.4 fL (9.1-12.4); NEUTROPHILS ABSOLUTE AUTO 9.31 K/mm3 (1.96-9.15); NEUTROPHILS PERCENT AUTO 70 % (41-73); NRBC ABSOLUTE 0.02 K/mm3 (0.00-0.02); NRBC Auto 0.2 /100 WBC (0.0-0.2); Platelet Count 330 K/mm3 (150-400); RDW Coefficient Variation 15.8 % (11.7-14.2); RDW Standard Deviation 58.8 fL (35.1-46.3); Red Blood Cell Count 3.26 M/mm3 (4.30-5.90); White Blood Cell Count 13.31 K/mm3 (4.00-11.30)
[2024-02-18 05:37] LABS: Bun/Creatinine Ratio 31.4 (12.0-20.0); Calcium, Blood 9.8 mg/dL (8.5-10.1); Creatinine, Blood 0.95 mg/dL (0.60-1.20)
[2024-02-18 08:05] VITALS: BP 151/74
[2024-02-18] MEDS ORDERED: ASPI81CH PO (15:00)
[2024-02-18] MEDS ORDERED: Tessalon200 MG PO (15:01)
[2024-02-18] MEDS ORDERED: GUAI600T33 PO (15:02)
[2024-02-18] MEDS ORDERED: OMEP20ER PO (15:02)
[2024-02-18] MEDS ORDERED: PRED20 PO (15:03)
[2024-02-18] MEDS ORDERED: AMLO5 PO (15:04)
--- NOTE | 2024-02-18 15:33 | NUR ---
DISCHARGE SUMMARY DISCHARGE PACKET WENT OVER WITH PATIENT AND FAMILY, WENT OVER NEW PRESCRIPTIONS. EDUCATED PATIENT THAT [facility] IS CLOSED TODAY, PATIENT STILL PREFERRED THIS PHARMACY. BEBETO DROPPED OFF PORTABLE O2 AND SENT HOME WITH PATIENT. IV REMOVED AND ESCORTED DOWN VIA WHEELCHAIR BY BILLING SUPERVISOR. NO QUESTIONS OR NEW CONCERNS UPON DISCHARGE.
== END 2024-02-18 16:02 | disposition home health service (06) | DRG 871 ==
LOC: ER 18:30 → MEDS 18:31 → ENPENDDIS 02-18 14:37 → MEDS 02-18 16:02
PROVIDERS: Family Medicine; Internal Medicine; Physician Assistant; ADMIT Student in an Organized Health Care Education/Training Program
PROC: 3E03329 Introduction of Other Anti-infective into Peripheral Vein, Percutaneous Approach (ICD-10-PCS; principal; 2024-02-13)
PROC: 5A09357 Assistance with Respiratory Ventilation, Less than 24 Consecutive Hours, Continuous Positive Airway Pressure (ICD-10-PCS; 2024-02-13)
DX: A41.89 Other specified sepsis (principal); J96.01 Acute respiratory failure with hypoxia; J44.1 Chronic obstructive pulmonary disease with (acute) exacerbation; J10.1 Influenza due to other identified influenza virus with other respiratory manifestations; N18.30 Chronic kidney disease, stage 3 unspecified; D63.1 Anemia in chronic kidney disease; I12.9 Hypertensive chronic kidney disease with stage 1 through stage 4 chronic kidney disease, or unspecified chronic kidney disease; I25.10 Atherosclerotic heart disease of native coronary artery without angina pectoris; I49.5 Sick sinus syndrome; Z79.890 Hormone replacement therapy; I45.5 Other specified heart block; Z86.73 Personal history of transient ischemic attack (TIA), and cerebral infarction without residual deficits; J20.8 Acute bronchitis due to other specified organisms; Z91.199 Patient's noncompliance with other medical treatment and regimen due to unspecified reason; Z99.81 Dependence on supplemental oxygen; Z95.5 Presence of coronary angioplasty implant and graft
CPT/HCPCS: 0241U; 36415; 71045; 71046; 80048; 80053; 82947; 84145; 84484; 85025; 93005; 93010; 93306; 94640; 94664; 94761; 94762; 96372; 96374; 96376; 97110; 97116; 97162; 97165; 97530; 99285-25; A9270; G0378; J1650; J2919; J7030; J7120; J7512